=== PATIENT | male | born 1935 | race Caucasian/White ===

== ENCOUNTER 2024-06-15 09:06 | Inpatient (IN) | payer MEDICARE, MEDICAID ==
[~2024-06-15] VITALS: Ht 177.8 cm; Wt 54.4 kg
[2024-06-15] VITALS (145 sets, daily range): BP systolic 56–146; BP diastolic 31–123
--- NOTE | 2024-06-15 09:06 | NUR ---
pt to er room 3 via ems
[2024-06-15] MEDS ORDERED: SODIUM CHLORIDE 0.9% 1,000 ML IV ONE ×3 (09:20→11:50)
[2024-06-15] MEDS ORDERED: PHENYLEPHRINE HCL 10 MG/ML VIAL IV ONE (09:20)
[2024-06-15] MEDS ORDERED: SODIUM CHLORIDE 0.9% 100 ML BAG IV ONE (09:20)
[2024-06-15] MEDS ORDERED: SODIUM CHLORIDE 0.9% 250 ML IV PRN ×3 (09:20→13:05)
[2024-06-15] MEDS ORDERED: NOREPINEPHRINE BITARTRATE 4 MG in DEXTROSE 5% 250 ML IV ONE (09:20)
--- NOTE | 2024-06-15 09:20 | NUR ---
PT ARRIVED VIA EMS HYPOTENSIVE AND UNABLE TO ANSWER ANY QUESTIONS. UNABLE TO OBTAIN PERIPHERAL IV ACCESS, IO PLACED PER MD. 0930 IO PUSH 1 MG OF TEODORA PER
[2024-06-15] MEDS ORDERED: cefTRIAXone SODIUM 2 GM in SODIUM CHLORIDE 0.9% 100 ML IV ONE (09:25)
[2024-06-15 09:48] LABS: BASO% 0.1 % (0-3); HEMATOCRIT 30.7 % (39.0-50.0); HEMOGLOBIN 8.6 g/dl (14.0-18.0); IMMATURE GRANULOCYTES 1.1 % (0.0-5.0); LYMPH% 7.3 % (15-41); MEAN CELL VOLUME 74.2 fL CALC (80.0-100.0); MEAN CORPUSCULAR HGB 20.8 pG CALC (26.0-32.0); MONO% 6.6 % (2-13); NEUT# 11.84 thou/uL (1.82-7.42); NEUT% 84.9 % (42-76); RED BLOOD COUNT 4.14 mill/uL (4.70-6.10); RED CELL DISTRI WIDTH 19.4 % (11.5-15.5)
--- NOTE | 2024-06-15 10:20 | NUR ---
OPT SLEEPING. HR 115-120'S, OXYGEN SATURATION STABLE, HYPOTENSIVE. NOTIFIED, PT RECEIVING 2L OF FLUIDS, RECEIVED 2G ROCEPHIN, CURRENTLY ON LEVOPHED DRIP
[2024-06-15 10:37] LABS: URINE BLOOD DIPSTICK Negative (NEGATIVE); URINE GLUCOSE - DIPSTICK Negative (NEGATIVE); URINE KETONE 15 mg/dL (NEGATIVE); URINE LEUK ESTERASE Negative (NEGATIVE); URINE NITRITE - DIPSTICK Negative (Negative); URINE PROTEIN - DIPSTICK 100 mg/dL (NEG-TRACE); URINE SPECIFIC GRAVITY >=1.030; URINE UROBILINOGEN - DIPSTICK 0.2 E.U./dL (0.2)
[2024-06-15 10:46] LABS: URINE COLOR Dark yellow
[2024-06-15 10:47] LABS: URINE EPITHELIAL CELLS MANY EPI/hpf (0-FEW)
[2024-06-15 10:48] LABS: URINE FINE GRAN CAST MODERATE lpf; URINE MUCUS MODERATE hpf (NONE-FEW)
[2024-06-15] MEDS ORDERED: VANCOMYCIN HCL 1 GM in SODIUM CHLORIDE 0.9% 500 ML IV ONE (10:55)
[2024-06-15 10:56] LABS: TOTAL PROTEIN 4.8 g/dL (6.3-8.2)
[2024-06-15 11:02] LABS: ALBUMIN 2.2 g/dL (3.2-5.0)
[2024-06-15] MEDS ORDERED: SODIUM BICARBONATE 8.4% 50 ML/SYR IV ONE (11:15)
[2024-06-15] MEDS ORDERED: CALCIUM CHLORIDE 10% 100 MG/ML 10ML SYR IV ONE (11:15)
[2024-06-15] MEDS ORDERED: INSULIN REGULAR (HUMAN) 100 UNIT/ML INJ IV ONE (11:15)
[2024-06-15] MEDS ORDERED: DEXTROSE 10% 500 ML BAG IV ONE (11:15)
--- NOTE | 2024-06-15 11:16 | NUR ---
PT SLEEPING, HR 110-120, BP STABLE ON LEVOPHED.
--- NOTE | 2024-06-15 12:07 | NUR ---
[place] AT BEDSIDE WITH PT SLEEPING AT THS TIME. WILL INITIATE AMIODARONE DRIP
[2024-06-15] MEDS ORDERED: amioDARONE HCl 450 MG in SODIUM CHLORIDE 250 ML IV ONE (12:10)
[2024-06-15] MEDS ORDERED: ACETAMIN500 M2 PO (12:39)
--- NOTE | 2024-06-15 12:39 | NUR ---
AMIODARONE BOLUS INITIATED 1249 AMIODARONE BOLUS COMPLETED 1250 AMOIDARONE DRIP INITIATED
[2024-06-15] MEDS ORDERED: ASPIRIN 81 LOW81 MG PO (12:40)
[2024-06-15] MEDS ORDERED: LIPITOR20 M1 PO (12:41)
[2024-06-15] MEDS ORDERED: CARB/LEVO1 TA5 PO (12:45)
[2024-06-15] MEDS ORDERED: EQL VITAMIN B500 MCG PO (12:46)
[2024-06-15] MEDS ORDERED: DULCOLAX10 MG RE (12:47)
[2024-06-15] MEDS ORDERED: ELIQUIS5 MG PO (12:47)
[2024-06-15] MEDS ORDERED: SYNJARDY 12.5-51 TAB PO (12:48)
[2024-06-15] MEDS ORDERED: PROSCAR5 MG PO (12:48)
[2024-06-15] MEDS ORDERED: TRAMADOL HYDROC50 M1 PO (12:50)
[2024-06-15] MEDS ORDERED: ONDANSETRON4 MG PO (12:51)
[2024-06-15] MEDS ORDERED: SERTRALINE100 MG PO (12:52)
[2024-06-15] MEDS ORDERED: TAMSULOSIN0.4 MG PO (12:54)
[2024-06-15] MEDS ORDERED: LANTUS SOL100 UNIT/M SC (12:57)
[2024-06-15] MEDS ORDERED: MAGNESIUM 400 M1 TAB PO (12:58)
[2024-06-15] MEDS ORDERED: MIRTAZAPINE15 MG PO (12:59)
[2024-06-15] MEDS ORDERED: FAMOTIDINE20 M3 PO (13:00)
[2024-06-15] MEDS ORDERED: TRESIBA100 UNIT/M SC (13:02)
[2024-06-15] MEDS ORDERED: NOREPINEPHRINE BITARTRATE 4 MG in DEXTROSE 5% 250 ML IV PRN (13:05)
[2024-06-15] MEDS ORDERED: OMEGA 31000 MG PO (13:06)
[2024-06-15] MEDS ORDERED: ANTI-DIARRHEAL2 M1 PO (13:09)
[2024-06-15] MEDS ORDERED: DEXTROSE 250 ML IV PRN (13:10)
[2024-06-15] MEDS ORDERED: MAGNESIUM HYDROXIDE 30 ML UDC PO PRN (13:10)
[2024-06-15] MEDS ORDERED: ACETAMINOPHEN 325 MG/TAB PO PRN (13:10)
[2024-06-15] MEDS ORDERED: SODIUM CHLORIDE 0.9% 1,000 ML IV PRN (13:10)
--- NOTE | 2024-06-15 13:16 | NUR ---
pt sleeping with family member at bedside. pt on levophed and amiodarone drip.
--- NOTE | 2024-06-15 14:05 | NUR ---
PT RECEIVED FROM RADHA THOMPSON. REPORT RECEIVED PRIOR. I WENT WITH PT TO CT. PT IS NOW IN ROOM 15 IN THE ER. DAUGHTER LALO AT BEDSIDE. CALL LIGHT IN REACH AND EXPLAINED TON DAUGHTER.
--- NOTE | 2024-06-15 14:10 | NUR ---
REPORT GIVEN TO ICU NURSE RICK. PT TRANSFERRED TO RM 15 ICU ADMIT ON LEVO AND AMIODARONE DRIP
[2024-06-15] MEDS ORDERED: CEFEPIME HYDROCHLORIDE 1 GM in SODIUM CHLORIDE 0.9% 50 ML IV SCH (14:30)
--- NOTE | 2024-06-15 14:45 | NUR ---
S: HAIDER GEORGE is a 88 M who presents with severe sepsis. He has a history of DM2, TIA, BPH, CAD, Depression, AFIB ischemic cardiomyopathy.All medications in patient's chart were reviewed. O: VS: BP 57/37 mmHg, P 86 bpm, RR 15 bpm ,T 98.9 W 54 kg, HT 70 inches , Scr= 2mg/dL ,CrCl= 19.6 ml/min A: Blood culture is pending P: Patient receive vancomycin 1 gm iv x 1 dose pt on Cefepime 1 g iv Q12HR. Vancomycin ordered for pharmacy to dose. Start Vancomycin 1g IV Q48H. Vancomycin trough is drawn before the 3th dose on 06/19/2024 at 10:30. Vancomycin goal trough is between 15-20 mcg/ml. Pharmacy will follow and or advise on antibiotics use as needed.
--- NOTE | 2024-06-15 16:00 | NUR ---
PT IS LAYING IN BED, DAUGHTER AT BEDSIDE. CALL LIGHT IN REACH.
[2024-06-15] MEDS ORDERED: CLARIFY DOSE PO PRN (16:55)
[2024-06-15] MEDS ORDERED: INSULIN LISPRO 100 UNITS/ML ML SC SCH (17:00)
[2024-06-15] MEDS ORDERED: MORPHINE SULFATE 4 MG/ML VIAL IV PRN (17:05)
--- NOTE | 2024-06-15 18:05 | NUR ---
PT IS LAYING IN BED. DAUGHTER, SON IN LAW ANDFAMILY AT THE BEDSIDE.CALL LIGHT IN REACH.
[2024-06-15] MEDS ORDERED: NOREPINEPHRINE BITARTRATE 4 MG/VIAL SDV ONE ×2 (19:35→21:08)
[2024-06-15] MEDS ORDERED: amioDARONE HCl 450 MG in SODIUM CHLORIDE 250 ML IV PRN (19:45)
--- NOTE | 2024-06-15 20:00 | NUR ---
ASSESSMENT COMPLETED. PT IN STUPOR, AWAKES TO VERBAL/TOUCH STIMULI. PT ON AMIO AND LEVOPHED PER PROVIDER ORDERS. FLUIDS FOR MAINTENANCE. PT HAS PROTECTIVE BOOTS ON BILAT FEET. NOTABLE NECROTIC FLESH ON TOES. BP SOFT, HR AFIB 87. AFEBRILE. FAMILY IS @ BEDSIDE. FAMIILY EDUCATED ON HOSPICE CONSTULT, FAMILY ISFULLY AWARE OF SITUATION.
[2024-06-15] MEDS ORDERED: Zaleplon 5 MG/CAP PO PRN (21:00)
--- NOTE | 2024-06-15 22:00 | NUR ---
PT GIVEN COMPLETE BED BATH, LINENS CHANGED. PT HAS BEDOYA IN PLACE, ELLIE CARE GIVEN. PT IS RESTFUL. NO CHANGES NOTED. FAMILY REMAINS @ BEDSIDE.
[2024-06-16] VITALS (17 sets, daily range): BP systolic 38–89; BP diastolic 22–53
--- NOTE | 2024-06-16 00:15 | NUR ---
FAMILY IS @ BEDSIDE. FAMILY IS DISCUSSING PLACING PT ON COMFORT MEAUSRES NOW. BP IS LOW. LEVOPHED NOT SUPPORTING BP.
--- NOTE | 2024-06-16 02:05 | NUR ---
DR WATKINS MADE AWARE OF FAMILY DECISION FOR COMFORT CARE AND TO DISCONTINUE MEDICATIONS OTHER THAN MORPHINE FOR PAIN. FAMILY AWARE OF WHAT TO EXPECT IF MEDICATIONS D/C. FAMILY AGREES AND ACCEPTS. DONNA RIVERA WITNESS.
--- NOTE | 2024-06-16 03:18 | NUR ---
PT @ 0309. MIGUEL, RN WITNESS. DR WATKINS AND DIRECTOR ONLINE MARKETING NOTIFIED. FAMILY @ BEDSIDE. REQUESTED [facility] IN [place].
[2024-06-17] MEDS ORDERED: VANCOMYCIN HCL 1 GM in SODIUM CHLORIDE 0.9% 250 ML IV SCH (11:00)
== END 2024-06-16 03:09 | disposition expired | DRG 871 ==
LOC: ED 09:06 → ED-I 11:00 → ED 11:17 → ED-I 11:18 → ICU 21:37
PROVIDERS: Family Medicine; ADMIT Internal Medicine; ATTEND Internal Medicine
PROC: 02HV33Z Insertion of Infusion Device into Superior Vena Cava, Percutaneous Approach (ICD-10-PCS; principal; 2024-06-15)
PROC: 3E043XZ Introduction of Vasopressor into Central Vein, Percutaneous Approach (ICD-10-PCS; 2024-06-15)
PROC: 0T9B70Z Drainage of Bladder with Drainage Device, Via Natural or Artificial Opening (ICD-10-PCS; 2024-06-15)
DX: A41.9 Sepsis, unspecified organism (principal); J18.9 Pneumonia, unspecified organism; R65.21 Severe sepsis with septic shock; N17.9 Acute kidney failure, unspecified; E87.20 Acidosis, unspecified; I47.20 Ventricular tachycardia, unspecified; C78.02 Secondary malignant neoplasm of left lung; C79.51 Secondary malignant neoplasm of bone; C77.2 Secondary and unspecified malignant neoplasm of intra-abdominal lymph nodes; I95.9 Hypotension, unspecified; E87.5 Hyperkalemia; C80.1 Malignant (primary) neoplasm, unspecified; R62.7 Adult failure to thrive; I10 Essential (primary) hypertension; E11.51 Type 2 diabetes mellitus with diabetic peripheral angiopathy without gangrene; I25.10 Atherosclerotic heart disease of native coronary artery without angina pectoris; I48.91 Unspecified atrial fibrillation; F03.90 Unspecified dementia, unspecified severity, without behavioral disturbance, psychotic disturbance, mood disturbance, and anxiety; F32.A Depression, unspecified; I25.5 Ischemic cardiomyopathy; Z95.0 Presence of cardiac pacemaker; Z66 Do not resuscitate; Z86.73 Personal history of transient ischemic attack (TIA), and cerebral infarction without residual deficits; Z79.4 Long term (current) use of insulin; Z51.5 Encounter for palliative care
CPT/HCPCS: J0282; J0692; J0696; J3370